=== PATIENT | male | born 1990 | race American Indian/Alaskan Native ===

== ENCOUNTER 2018-08-04 07:25 | Emergency (ER) | payer OTHER ==
--- NOTE | 2018-08-04 08:55 | Emergency Department Report ---
Chief Complaint: Upper Respiratory Infection Time Seen by Provider: 08/04/18 08:43 - HPI History of Present Illness: Mr. Sosa has had left ear pressure and nasal congestion for 1 week. No cough. Medical screening exam performed. No indication for further treatment or evaluation. Given supportive care instructions. Mr. Sosa has simple URI without signs of influenza or pneumonia. On exam of left ear: No signs of otitis media or externa. - Exam Vital Signs: Vital Signs 08/04/18 08/04/18 08:01 08:02 Temperature 97.8 F 97.8 F Pulse Rate 69 69 Respiratory 20 20 Rate Blood Pressure 132/80 Blood Pressure 132/80 [Left] O2 Sat by Pulse 99 99 Oximetry MSE screening note: Focused history and physical exam performed. Due to findings the following was ordered: ED Disposition for MSE Clinical Impression: Upper respiratory infection Disposition: -07 MED SCREENING EXAM-LEFT Is pt being admited?: No Does the pt Need Aspirin: No Condition: Stable Referrals: OLESYA DOZIER MD [Primary Care Provider] - 3-5 Days
== END 2018-08-04 09:02 | disposition left against medical advice (07) ==
LOC: ED 07:25
DX: J06.9 Acute upper respiratory infection, unspecified (principal)
CPT/HCPCS: 99282